=== PATIENT | female | born 1980 ===

== ENCOUNTER 2020-12-08 09:03 | Outpatient (CLI) | payer OTHER ==
[~2020-12-08 09:03] MED LIST: OBSTETRIX PO; PREVACID 15MG15 MG GT; TUMS500 MG PO; ZANTAC150 MG PO
== END 2020-12-08 09:08 | disposition home or self-care (01) ==
LOC: RX STUDY 09:03
PROVIDERS: ATTEND Obstetrics & Gynecology Reproductive Endocrinology
DX: N93.0 Postcoital and contact bleeding (principal)